=== PATIENT | female | born 1970 | race Caucasian/White ===

== ENCOUNTER 2017-06-14 22:42 | Emergency (ER) | payer MEDICAID ==
[~2017-06-14] VITALS: Ht 170.2 cm; Wt 104.3 kg
[2017-06-14 22:42] VITALS: BP_SYST 203
[2017-06-15] MEDS ORDERED: ONDANSETRON 4 MG ODT TAB PO ONE (00:15)
[2017-06-15] MEDS ORDERED: ASPIRIN 81 MG TAB.CHEW PO ONE ×2 (00:15→03:15)
[2017-06-15] MEDS ORDERED: cloNIDine HCL 0.1 MG TABLET PO ONE ×2 (00:15→01:30)
[2017-06-15 01:16] LABS: PROTHROMBIN TIME 10.4 SECS (9.5-12.5)
[2017-06-15 01:22] LABS: CREATININE 0.92 mg/dL (0.55-1.30); POTASSIUM 3.6 mmol/L (3.5-5.1)
[2017-06-15 01:23] LABS: BASOPHILS % (AUTO) 0.4 % (0.0-2.0); EOSINOPHILS # (AUTO) 0.2 K/uL (0.0-0.4); EOSINOPHILS % (AUTO) 1.7 % (0.0-4.0); HEMATOCRIT 32.6 % (36-48); HEMOGLOBIN 10.9 g/dL (12.0-16.0); LYMPHOCYTES # (AUTO) 2.7 K/uL (1.0-5.5); LYMPHOCYTES % (AUTO) 26.6 % (20.5-51.5); MEAN CORPUSCULAR HEMOGLOBIN 28 pg (27-31); MEAN CORPUSCULAR HGB CONC 34 % (32-36); MEAN CORPUSCULAR VOLUME 83 fL (79.0-98.0); MONOCYTES # (AUTO) 1.2 K/uL (0.0-1.0); MONOCYTES % (AUTO) 11.7 % (1.7-9.3); NEUTROPHILS # (AUTO) 6.1 K/uL (1.8-7.7); NEUTROPHILS % (AUTO) 59.6 % (40.0-70.0); PLATELET COUNT (AUTO) 351 K/uL (130-430); RED BLOOD CELL COUNT(AUTO) 3.94 MIL/uL (4.2-6.2); RED CELL DISTRIBUTION WIDTH 15.1 % (9.0-15.0); WHITE BLOOD COUNT (AUTO) 10.2 K/uL (4.8-10.8)
[2017-06-15 01:38] LABS: ALBUMIN 3.9 g/dL (3.4-4.8); TOTAL BILIRUBIN 0.3 mg/dL (0.0-1.0)
[2017-06-15 04:43] VITALS: BP_SYST 137
== END 2017-06-15 04:43 | disposition home or self-care (01) ==
LOC: SED 22:42
DX: I10 Essential (primary) hypertension (principal); E03.9 Hypothyroidism, unspecified; F41.9 Anxiety disorder, unspecified
CPT/HCPCS: 36415; 70450; 71045; 80053; 81025; 84443; 84484; 85025; 85610; 85730; 93005; 99285; Q0162

== ENCOUNTER 2021-03-24 15:22 | Emergency (ER) | payer MEDICAID ==
[~2021-03-24] VITALS: Ht 170.2 cm; Wt 90.7 kg
[2021-03-24 15:42] VITALS: BP_SYST 146
--- NOTE | 2021-03-24 15:50 | NUR ---
Pt to hallway 1 for evaluation.
--- NOTE | 2021-03-24 15:52 | NUR ---
Pt AAO and ambulatory reporting worsening right knee pain x 1 month. Pt denies any acute injury or trauma. Pt states that the pain has become severe this past week. Pt rates pain 9/10 on pain scale. Pt denies any past medical history.
--- NOTE | 2021-03-24 16:05 | NUR ---
Dr. Tapia at bedside to assess.
[2021-03-24] MEDS ORDERED: HYDROcodone/ACETAMIN 10-325 MG TAB PO ONE (16:15)
[2021-03-24] MEDS ORDERED: KETOROLAC TROMETHAMINE 60 MG/2 ML VIAL IM ONE (16:15)
--- NOTE | 2021-03-24 16:17 | NUR ---
Lab at bedside to draw blood sample.
[2021-03-24 16:28] LABS: BASOPHILS # (AUTO) 0.1 K/uL (0.0-0.2); BASOPHILS % (AUTO) 0.4 % (0.0-2.0); EOSINOPHILS # (AUTO) 0.2 K/uL (0.0-0.4); EOSINOPHILS % (AUTO) 1.8 % (0.0-4.0); HEMATOCRIT 39.2 % (36-48); LYMPHOCYTES # (AUTO) 2.4 K/uL (1.0-5.5); LYMPHOCYTES % (AUTO) 20.7 % (20.5-51.5); MEAN CORPUSCULAR HEMOGLOBIN 28 pg (27-31); MEAN CORPUSCULAR HGB CONC 33 % (32-36); MEAN CORPUSCULAR VOLUME 85 fL (79.0-98.0); MONOCYTES # (AUTO) 1.1 K/uL (0.0-1.0); NEUTROPHILS % (AUTO) 68.1 % (40.0-70.0); PLATELET COUNT (AUTO) 294 K/uL (130-430); RED BLOOD CELL COUNT(AUTO) 4.63 MIL/uL (4.2-6.2); RED CELL DISTRIBUTION WIDTH 15.8 % (9.0-15.0); WHITE BLOOD COUNT (AUTO) 11.7 K/uL (4.8-10.8)
--- NOTE | 2021-03-24 16:34 | NUR ---
X-ray done portable at bedside.
[2021-03-24 18:57] LABS: C-REACTIVE PROTEIN QUANT 3.6 mg/dL (0-0.5)
[2021-03-24 18:59] LABS: ALBUMIN 3.4 g/dL (3.4-4.8); CALCIUM 8.8 mg/dL (8.4-11.0); CREATININE 1.12 mg/dL (0.55-1.30); POTASSIUM 3.8 mmol/L (3.5-5.1); TOTAL BILIRUBIN 0.3 mg/dL (0.0-1.0); URIC ACID 6.6 mg/dL (2.4-7.0)
[2021-03-24] MEDS ORDERED: IBUP-1969 PO (19:01)
[2021-03-24] MEDS ORDERED: HYDR-3917 PO (19:01)
--- NOTE | 2021-03-24 19:15 | NUR ---
Knee immobilizer applied to right knee. Pt tolerated well.
--- NOTE | 2021-03-24 19:17 | NUR ---
Crutches properly fitted for patient. Patient given crutch walking instructions and demonstration. Is able to demonstrate adequate crutch walking technique with crutches provided.
--- NOTE | 2021-03-24 19:17 | NUR ---
Patient given written and verbal discharge instructions and verbalizes understanding. Dr. Willie GARZA MD discussed with patient the results and treatment provided. Patient in stable condition. ID arm band removed. Rx per MD. Patient educated on pain management and to follow up with PMD. Pain Scale 0/10. Opportunity for questions provided and answered. Medication side effect fact sheet provided.
[2021-03-24 19:18] VITALS: BP_SYST 146
[2021-03-24 23:39] LABS: ERYTHROCYTE SEDIMENTATION RATE 35 MM/HR (0-20)
== END 2021-03-24 19:18 | disposition home or self-care (01) ==
LOC: SED 15:22
DX: M17.11 Unilateral primary osteoarthritis, right knee (principal); I10 Essential (primary) hypertension; Z79.899 Other long term (current) drug therapy
CPT/HCPCS: 29505; 36415; 73560; 80053; 84550; 85025; 85651; 86140; 96372; 99284; J1885

== ENCOUNTER 2021-04-06 22:31 | Emergency (ER) | payer MEDICAID ==
[~2021-04-06] VITALS: Ht 170.2 cm; Wt 113.4 kg
[~2021-04-06 22:31] MED LIST: HYDR-3917 PO; IBUP-1969 PO
[2021-04-06 22:40] VITALS: BP_SYST 200
--- NOTE | 2021-04-06 22:50 | NUR ---
Patient to ER bed [place] to gown for evaluation. Side rails up. Report given to Aydee CHAPIN.
--- NOTE | 2021-04-06 22:55 | NUR ---
Patient BIB by family from home. C/O right knee pain x 2 weeks, Patient reported, had right knee pain for 2 weeks, Seen by ERMD, took medications, no relief. A/O,X4, right knee pain, pain rate 10/10.
--- NOTE | 2021-04-06 23:05 | NUR ---
ER Dr. Murdock at bedside examining patient.
[2021-04-06] MEDS ORDERED: KETOROLAC TROMETHAMINE 60 MG/2 ML VIAL IM ONE (23:30)
[2021-04-06] MEDS ORDERED: HYDROcodone/ACETAMIN 10-325 MG TAB PO ONE (23:30)
--- NOTE | 2021-04-07 00:12 | NUR ---
BP 191/92, Dr. Murdock notified.
[2021-04-07] MEDS ORDERED: HYDR-3917 PO (00:21)
[2021-04-07] MEDS ORDERED: NAPR-1172 PO (00:21)
[2021-04-07 00:29] VITALS: BP_SYST 191
--- NOTE | 2021-04-07 00:29 | NUR ---
Patient given written and verbal discharge instructions and verbalizes understanding. ER MD discussed with patient the results and treatment provided. Patient in stable condition. ID arm band removed. Rx of Naproxen and [place] given. Patient educated on pain management and to follow up with PMD. Pain Scale 3/10. Opportunity for questions provided and answered. Medication side effect fact sheet provided.
== END 2021-04-07 00:29 | disposition home or self-care (01) ==
LOC: SED 22:31
DX: M25.561 Pain in right knee (principal); I10 Essential (primary) hypertension; Z79.899 Other long term (current) drug therapy
CPT/HCPCS: 96372; 99283; J1885

== ENCOUNTER 2023-08-01 19:18 | Emergency (ER) | payer MEDICAID ==
[~2023-08-01] VITALS: Ht 170.2 cm; Wt 136.1 kg
[~2023-08-01 19:18] MED LIST changes: +NAPR-1172 PO
[2023-08-01 19:41] VITALS: BP_SYST 172; PULSE 63; RESP 16; TEMP 97.2; O2SAT 96
[2023-08-01] MEDS ORDERED: NEO/3.5O OP (23:42)
[2023-08-01 23:44] VITALS: BP_SYST 164; PULSE 66; RESP 16; TEMP 97.5; O2SAT 97
== END 2023-08-01 23:44 | disposition home or self-care (01) ==
LOC: SED 19:18
DX: H00.016 Hordeolum externum left eye, unspecified eyelid (principal); H00.013 Hordeolum externum right eye, unspecified eyelid; I10 Essential (primary) hypertension; Z98.890 Other specified postprocedural states; Z79.899 Other long term (current) drug therapy
CPT/HCPCS: 99283